=== PATIENT | female | born 2000 | race Caucasian/White ===

== ENCOUNTER 2021-01-04 21:42 | Emergency (ER) | payer OTHER ==
[~2021-01-04] VITALS: Ht 182.9 cm; Wt 60.5 kg
[2021-01-04 22:31] LABS: BASOPHILS % (AUTO) 0.5 % (0-1); EOSINOPHILS % (AUTO) 0.2 % (0-6); HEMATOCRIT 39.2 % (35.0-45.0); HEMOGLOBIN 13.1 g/dl (12.0-16.0); LYMPHOCYTES # (AUTO) 2.4 X10'3 (1.1-4.8); LYMPHOCYTES % (AUTO) 23.7 % (21-51); MEAN CORPUSCULAR HEMOGLOBIN 29.4 PG (27.0-31.0); MEAN CORPUSCULAR HGB CONC 33.5 g/dL (33.0-36.5); MEAN CORPUSCULAR VOLUME 87.7 FL (78-98); MEAN PLATELET VOLUME 7.2 FL (7.4-10.4); MONOCYTES # (AUTO) 0.6 X10'3 (0-0.9); MONOCYTES % (AUTO) 5.8 % (2-12); NEUTROPHILS % (AUTO) 69.8 % (42-75); PLATELET COUNT 339 X10'3 (140-440); RED BLOOD COUNT 4.48 X10'6 (4.20-5.60); RED CELL DISTRIBUTION WIDTH 13.3 % (11.5-14.5)
[2021-01-04 22:34] LABS: URINE HCG NEGATIVE (NEG)
[2021-01-04 22:41] LABS: ALANINE AMINOTRANSFERASE 25 U/L (12-78); ALBUMIN 4.3 G/DL (3.4-5.0); ALBUMIN/GLOBULIN RATIO 1.1 (1.1-1.5); ALKALINE PHOSPHATASE 102 IU/L (20-180); ANION GAP 9 (8-16); ASPARTATE AMINO TRANSFERASE 17 U/L (10-37); BILIRUBIN,TOTAL 0.2 MG/DL (0.1-1.0); BLOOD UREA NITROGEN 17 MG/DL (7-18); BUN/CREATININE RATIO 19.8 (6.6-38.0); CALCIUM 9.2 MG/DL (8.5-10.1); CHLORIDE 102 MMOL/L (99-107); CREATININE 0.86 MG/DL (0.40-0.90); GLUCOSE 126 MG/DL (70-104); LIPASE < 50 U/L (73-393); POTASSIUM 3.7 MMOL/L (3.5-5.1); SODIUM 139 MMOL/L (135-145); TOTAL CARBON DIOXIDE 28.5 MMOL/L (24-32); TOTAL PROTEIN 8.2 G/DL (6.4-8.2); eGFR 85 ML/MIN
[2021-01-04] MEDS ORDERED: normal saline 1000ml 1,000 ML IV ONE (23:25)
[2021-01-05 00:23] LABS: CLARITY,URINE SLIGHTLY CLOUDY (Clear); COLOR,URINE YELLOW (Yellow); GLUCOSE, URINE NEGATIVE (Neg); KETONES,URINE NEGATIVE (Neg); LEUKOCYTE ESTERASE ,URINE NEGATIVE (Neg); NITRITES, URINE NEGATIVE (Neg); OCCULT BLOOD,URINE NEGATIVE (Neg); PROTEIN,URINE TRACE mg/dl (Neg); UROBILINOGEN,URINE 0.2 E.U/dL (0.2-1.0)
[2021-01-05 00:28] LABS: RBC,URINE NONE SEEN /HPF (0-2); UA COLLECTION TYPE OTHER
[2021-01-05 00:29] LABS: BACTERIA,URINE 4+ /HPF (Neg); HYALINE CASTS 0-3 /LPF (NEGATIVE); MUCUS STRANDS MANY /LPF (Neg); SQUAMOUS EPITHELIAL CELL,UR MANY /LPF (FEW)
[2021-01-05] MEDS ORDERED: docusate sod 100mg capsule PO ONE (00:30)
[2021-01-05] MEDS ORDERED: sennosides 8.6mg tablet PO ONE (00:30)
[2021-01-05 01:26] VITALS: BP 108/58
== END 2021-01-05 01:30 | disposition home or self-care (01) ==
LOC: ER 21:43
DX: K59.00 Constipation, unspecified (principal); R10.84 Generalized abdominal pain
CPT/HCPCS: 36415; 80053; 81001; 81025; 83690; 85025; 96360; 96361; 99283; J7030

== ENCOUNTER 2023-07-06 09:30 | Emergency (ER) | payer SELFPAY ==
[~2023-07-06] VITALS: Ht 170.2 cm; Wt 68.2 kg
[2023-07-06 09:57] VITALS: PULSE 115; RESP 16; TEMP 98; O2SAT 100
[2023-07-06 10:29] VITALS: BP 132/83
== END 2023-07-06 10:30 ==
LOC: ER 09:31
DX: I10 Essential (primary) hypertension (principal); F15.10 Other stimulant abuse, uncomplicated
CPT/HCPCS: 99283